=== PATIENT | female | born 1950 | race African-American/Black ===

== ENCOUNTER 2021-06-04 15:03 | Inpatient (IN) | payer OTHER, SELFPAY ==
--- NOTE | 2021-06-04 | ECG_ITS ---
Test Reason : MEDICAL CLEARANCE Blood Pressure : / mmHG Vent. Rate : 077 BPM Atrial Rate : 077 BPM P-R Int : 144 ms QRS Dur : 078 ms QT Int : 386 ms P-R-T Axes : 055 -03 -09 degrees QTc Int : 436 ms Sinus rhythm with Premature atrial complexes Nonspecific T wave abnormality Abnormal ECG No previous ECGs available Referred By: Girish Lafleur Electronically Signed By:MAGUE UGARTE
--- NOTE | ~2021-06-04 | CT_ITS ---
EXAMINATION: CT HEAD WITHOUT CONTRAST CLINICAL INFORMATION: Possible delusions. COMPARISON: No relevant prior imaging. TECHNIQUE: Contiguous axial imaging was performed from the skull base to vertex without intravenous administration of contrast. This CT examination was performed using dose optimization techniques as appropriate, variously including the following: *Automated exposure control *Adjustment of mA and/or kV according to patient size (this includes techniques or standardized protocols for targeted exams where dose is matched to indication/reason for exam; i.e. extremities or head) *Use of iterative reconstruction technique DLP: 801 mGy-cm FINDINGS: There is no acute intracranial hemorrhage or abnormal extra-axial collection. No intracranial mass effect or midline shift. Lateral and third ventricles are normal. No hydrocephalus. Garces-white matter differentiation is grossly preserved and there is no evidence of acute territorial infarct. The calvarium and skull base are intact. Mastoid air cells and middle ear cavities are well aerated. No active paranasal sinus disease. CT/CT head/brain wo con IMPRESSION: Normal CT scan of the head.
[2021-06-04 15:16] VITALS: BP 122/68; PULSE 72
[2021-06-04 15:27] VITALS: BP 104/67; PULSE 78; RESP 18; TEMP 36.9; O2SAT 100; BMI 36.3
--- NOTE | 2021-06-04 15:35 | ED.PSYCH ---
HPI - Psych General Chief Complaint: Psychiatric Symptoms Stated Complaint: HI, CALM AND COOPERATIVE Time Seen by Provider: 06/04/21 15:08 Source: patient Mode of arrival: EMS Limitations: no limitations History of Present Illness HPI Narrative: section 12 for HI towards neighbors complaint: other (possible delusions about her neighbors HI towards her neighbors wrote a note about killing them with a gun) Onset (ago): month(s) (6) Duration: constant History of same: No Relieving factors: none Exacerbating factors: other (issues with her neighbors - they smoke crack cocaine ) Context: significant life stressor Associated psychiatric symptoms: delusions Associated symptoms: denies other symptoms Treatments prior to arrival: placed on mental health hold Related Data Allergies Allergy/AdvReac Type Severity Reaction Status Date / Time No Known Allergies Allergy Verified 06/04/21 15:24 Review of Systems Review of Systems: Constitutional : No Fever, No Chills ENT/Mouth : No Ear Pain, No Nasal Congestion, No sore throat Eyes: No Eye Pain, No Swelling, No Redness Cardiovascular : No Chest Pain, No SOB Respiratory : No Cough, No Sputum, No Dyspnea Gastrointestinal : No Nausea, No Vomiting, No Diarrhea, No Hematochezia, No Melena Genitourinary : No Dysuria, No Urinary Frequency, No Hematuria Musculoskeletal : No Myalgias Skin : No Skin Lesions, No rash Neuro : No Weakness, No Numbness, No Paresthesias, No Dizziness, No Headache Psych : no Anxiety, no Depression, no SI pos HI Heme/Lymph: No Lymphadenopathy Endocrine : No Polyuria, No Polydipsia All other systems reviewed and are negative [facility] Past Medical History Attestation statement: The following information was validated with the patient. Medical History HTN (hypertension) Social History Social History (Updated 06/04/21 @ 15:48 by Josefina Hernandez DO) Patient Tobacco Use Status: Never used Tobacco Use of substances other than those prescribed or required for medical reasons: No Advance Directives: No Advance Directives Information Provided: No Physical Exam Vital Signs: Vital Signs: Last Vital Signs Temp 98.5 F 06/04/21 15:27 Pulse 78 06/04/21 15:27 Resp 18 06/04/21 15:27 BP 104/67 06/04/21 15:27 Pulse Ox 100 06/04/21 15:27 BMI result Body Mass Index 36.3 Appearance: Alert. Oriented X3. No acute distress. Calm and cooperative, story very consistent Eyes: Pupils equal, round and reactive to light. ENT: Pharynx normal. Neck: Normal inspection. Neck supple. CVS: Normal heart rate and rhythm. Pulses normal. Respiratory: No respiratory distress. Breath sounds normal. Abdomen: Soft and non-tender. Skin: Skin warm and dry. Normal skin color. Normal skin turgor. Extremities: No lower extremity edema. No calf ttp Neuro: Oriented X 3. No motor deficit. No sensory deficit. Cn 2-12 intact Course Course Course Narrative: signed out to Dr. Lafleur pending full workup MDM - Psych MDM Narrative Medical decision making narrative: 71 yo female with hx of HTN here with 6 months of issues with neighbors she states they are smoking crack cocaine and coming into her house at night and eating her food. At this time she denies prior hx of mental illness. Will need labs, UA, CT head for mass. Once medically cleared will need N consult. Lab Data Result diagrams: 06/04/21 15:58 06/04/21 15:58 Labs: Lab Results 06/04/21 06/04/21 06/04/21 Range/Units 15:45 15:45 15:58 WBC 6.7 (4.8-10.8) X10*3/uL RBC 4.56 (4.20-5.50) X10*6/uL Hgb 13.0 (12.0-16.0) g/dl Hct 42.1 (37.0-47.0) % MCV 92.3 (80.0-98.0) fL MCH 28.5 (27.0-33.0) pg MCHC 30.9 L (31.0-35.0) g/dl RDW 15.0 (11.0-16.0) % Plt Count 221 (160-400) X10*3/uL MPV 9.8 (9.4-12.3) fL Immature Gran % (Auto) 0.3 (0.0-0.4) % Neut % (Auto) 58.0 (45-73) % Lymph % (Auto) 32.7 (20-40) % [place] % (Auto) 7.0 (2-11) % Eos % (Auto) 1.9 (0-4) % Baso % (Auto) 0.1 (0-2) % Lymph # (Auto) 2.2 (1.2-4.9) X10*3/uL [place] # (Auto) 0.5 (0.1-1.2) X10*3/uL Eos # (Auto) 0.1 (0.0-0.4) X10*3/uL Baso # (Auto) 0.0 (0.0-0.2) X10*3/uL Abs Immat Gran (auto) 0.02 (0.00-0.03) X10*3/uL Absolute Neuts (auto) 3.9 (2.0-8.3) x10*3/uL Absolute Nucleated RBC 0.000 (0.0-0.012) X10*3/uL Nucleated RBC % (auto) 0.0 (0.0-0.2) /100WBC Sodium (135-145) mmol/L Potassium (3.3-5.1) mmol/L Chloride (96-108) mmol/L Carbon Dioxide (22-29) mmol/L Anion Gap (12-20) BUN (9-16) mg/dL Creatinine (0.5-1.4) mg/dL Estim Creat Clear Calc Estimated GFR Random Glucose (60-115) mg/dL Calcium (8.4-10.2) mg/dL Magnesium (1.6-2.6) mg/dL Total Bilirubin (0.0-1.0) mg/dL Direct Bilirubin (0.0-0.5) mg/dL AST (5-31) U/L ALT (0-31) U/L Alkaline Phosphatase (39-117) U/L Total Protein (6.5-8.0) g/dL Albumin (3.5-5.0) g/dL Urine Color YELLOW Urine Appearance HAZY Urine pH 6.0 (5.0-8.0) Ur Specific [place] 1.010 (1.005-1.025) Urine Protein NEG (NEG-TRACE) MG/DL Urine Glucose (UA) NEG (NEG) MG/DL Urine Ketones NEG (NEG) MG/DL Urine Blood NEG (NEG) Urine Nitrite NEG (NEG) Ur Leukocyte Esterase 1+ H (NEG) Urine RBC 0-2 (0) /HPF Urine WBC 1-4 (0-4) /HPF Ur Squamous Epith Cells 1+ /LPF Amorphous Sediment TRACE /LPF Urine Bacteria 2+ /LPF Hyaline Casts 5-9 /LPF Urine Mucus TRACE /LPF Urine Opiates Screen Not Detected (Not Detect) Urine Fentanyl Screen Not Detected (Not Detect) Ur Barbiturates Screen Not Detected (Not Detect) Ur Phencyclidine Scrn Not Detected (Not Detect) Ur Amphetamines Screen Not Detected (Not Detect) U Benzodiazepines Scrn Not Detected (Not Detect) Urine Cocaine Screen Not Detected (Not Detect) U Marijuana (THC) Screen Not Detected (Not Detect) COVID-19 (JUAN) (Negative) COVID-19 Clin Com 06/04/21 06/04/21 Range/Units 15:58 15:58 WBC (4.8-10.8) X10*3/uL RBC (4.20-5.50) X10*6/uL Hgb (12.0-16.0) g/dl Hct (37.0-47.0) % MCV (80.0-98.0) fL MCH (27.0-33.0) pg MCHC (31.0-35.0) g/dl RDW (11.0-16.0) % Plt Count (160-400) X10*3/uL MPV (9.4-12.3) fL Immature Gran % (Auto) (0.0-0.4) % Neut % (Auto) (45-73) % Lymph % (Auto) (20-40) % [place] % (Auto) (2-11) % Eos % (Auto) (0-4) % Baso % (Auto) (0-2) % Lymph # (Auto) (1.2-4.9) X10*3/uL [place] # (Auto) (0.1-1.2) X10*3/uL Eos # (Auto) (0.0-0.4) X10*3/uL Baso # (Auto) (0.0-0.2) X10*3/uL Abs Immat Gran (auto) (0.00-0.03) X10*3/uL Absolute Neuts (auto) (2.0-8.3) x10*3/uL Absolute Nucleated RBC (0.0-0.012) X10*3/uL Nucleated RBC % (auto) (0.0-0.2) /100WBC Sodium 142 (135-145) mmol/L Potassium 4.5 (3.3-5.1) mmol/L Chloride 104 (96-108) mmol/L Carbon Dioxide 30 H (22-29) mmol/L Anion Gap 13 (12-20) BUN 12 (9-16) mg/dL Creatinine 0.91 (0.5-1.4) mg/dL Estim Creat Clear Calc 70.3 Estimated GFR > 60 Random Glucose 124 H (60-115) mg/dL Calcium 9.5 (8.4-10.2) mg/dL Magnesium 2.1 (1.6-2.6) mg/dL Total Bilirubin 0.3 (0.0-1.0) mg/dL Direct Bilirubin < 0.2 (0.0-0.5) mg/dL AST 54 H (5-31) U/L ALT 26 (0-31) U/L Alkaline Phosphatase 109 (39-117) U/L Total Protein 7.3 (6.5-8.0) g/dL Albumin 4.0 (3.5-5.0) g/dL Urine Color Urine Appearance Urine pH (5.0-8.0) Ur Specific [place] (1.005-1.025) Urine Protein (NEG-TRACE) MG/DL Urine Glucose (UA) (NEG) MG/DL Urine Ketones (NEG) MG/DL Urine Blood (NEG) Urine Nitrite (NEG) Ur Leukocyte Esterase (NEG) Urine RBC (0) /HPF Urine WBC (0-4) /HPF Ur Squamous Epith Cells /LPF Amorphous Sediment /LPF Urine Bacteria /LPF Hyaline Casts /LPF Urine Mucus /LPF Urine Opiates Screen (Not Detect) Urine Fentanyl Screen (Not Detect) Ur Barbiturates Screen (Not Detect) Ur Phencyclidine Scrn (Not Detect) Ur Amphetamines Screen (Not Detect) U Benzodiazepines Scrn (Not Detect) Urine Cocaine Screen (Not Detect) U Marijuana (THC) Screen (Not Detect) COVID-19 (JUAN) Negative (Negative) COVID-19 Clin Com See Note Discharge Plan Discharge Clinical Impression: Delusion Patient Disposition: Still a Patient
[2021-06-04 15:54] LABS: Appearance Urine HAZY; Color Urine YELLOW; Glucose Urine UA NEG (NEG); Leukocyte Esterase Urine 1+ (NEG); Nitrite Urine NEG (NEG); UACC Culture Trigger YES; Urine Blood NEG (NEG); Urine Ketones NEG (NEG); Urine Protein NEG (NEG-TRACE)
[2021-06-04 16:03] LABS: MANUAL DIFF FLAG NO
[2021-06-04 16:08] LABS: Basophils Percent Auto 0.1 % (0-2); Eosinophils Absolute Auto 0.1 X10*3/uL (0.0-0.4); Eosinophils Percent Auto 1.9 % (0-4); Hematocrit 42.1 % (37.0-47.0); Imm Gran Abs Auto 0.02 X10*3/uL (0.00-0.03); Imm Gran Pct Auto 0.3 % (0.0-0.4); Lymphocytes Absolute Auto 2.2 X10*3/uL (1.2-4.9); Lymphocytes Percent Auto 32.7 % (20-40); Mean Corpuscular HGB Conc 30.9 g/dl (31.0-35.0); Mean Corpuscular Hemoglobin 28.5 pg (27.0-33.0); Mean Corpuscular Volume 92.3 fL (80.0-98.0); Mean Platelet Volume 9.8 fL (9.4-12.3); Monocytes Absolute Auto 0.5 X10*3/uL (0.1-1.2); Neutrophils Absolute Auto 3.9 x10*3/uL (2.0-8.3); Platelet Count 221 X10*3/uL (160-400); Red Blood Count 4.56 X10*6/uL (4.20-5.50); White Blood Count 6.7 X10*3/uL (4.8-10.8)
[2021-06-04 16:08] LABS: Amorphous Sediment Urine TRACE /LPF; Bacteria Urine 2+ /LPF; Mucus Urine TRACE /LPF; RBC Urine 0-2 /HPF (0); Squamous Epithelial Cell Urine 1+ /LPF
[2021-06-04 16:10] LABS: Amphetamine Screen Urine Not Detected (Not Detect); Barbiturates, Urine Not Detected (Not Detect); Benzodiazepines Screen Urine Not Detected (Not Detect); Cannabinoid Screen Urine Not Detected (Not Detect); Cocaine Screen Urine Not Detected (Not Detect); Fentanyl, urine Not Detected (Not Detect); Opiate Screen Urine Not Detected (Not Detect); Phencyclidine Screen Urine Not Detected (Not Detect)
[2021-06-04 16:24] LABS: COVID-19 Test Negative (Negative)
[2021-06-04 16:25] LABS: Alanine Aminotransferase 26 U/L (0-31); Alkaline Phosphatase 109 U/L (39-117); Anion Gap 13 (12-20); Aspartate Amino Transferase 54 U/L (5-31); Bilirubin Direct < 0.2 mg/dL (0.0-0.5); Bilirubin Total 0.3 mg/dL (0.0-1.0); Blood Urea Nitrogen 12 mg/dL (9-16); Calcium 9.5 mg/dL (8.4-10.2); Carbon Dioxide 30 mmol/L (22-29); Chloride 104 mmol/L (96-108); Creatinine Clr Calc Pharmacy 70.3; Estimated Glomerular Filt Rate > 60; Glucose Random 124 mg/dL (60-115); Magnesium 2.1 mg/dL (1.6-2.6); Potassium 4.5 mmol/L (3.3-5.1); Sodium 142 mmol/L (135-145); Total Protein 7.3 g/dL (6.5-8.0)
[2021-06-04 16:46] LABS: TSH reflex Free T4 0.73 uIU/mL (0.32-4.0)
--- NOTE | 2021-06-04 21:30 | PC.NURSE ---
Report given to Barb ([id number])
[2021-06-04 22:10] VITALS: BP 124/60; PULSE 68; RESP 18; TEMP 36.1; O2SAT 98
--- NOTE | 2021-06-05 00:52 | PC.ADMIT ---
PT is a 71 year old Black, Stateless speaking female, referred to [facility] (To whom she is known) after making several phone calls to 911 related to paranoid delusions. At baseline PT has some paranoia and delusions. PT has never had an inpatient admission. PT arrived to unit in a WC with staff and security on a 12b at 2205 in hospital attire. PT calm and cooperative during admission interview. PT A+Ox4, but does not understand why she is here. PT has been leaving threatening notes on neighbors door, ,whom she believes is doing drugs and breaking into her apartment, PT was claiming she had a gun and would use it. Of note daughter and PT said PT does not have a gun. PT has no significant psychiatric history. PT refused to sign the CV in the ED with Care Team. PT states that she has HTN. VSS at 2210 T 97, P68, O298%/RA, BP 124/60. PT could possibly have cognitive decline or neurocognitive D/O according to prior evaluation. PT Covid negative, PT does not smoke, PT declined flu vaccine, urine tox screen was negative. PT oriented to unit, belongings gone through and given to PT what was allowed. MD Mckee notified of PT pending arrival and transfer orders were put in prior to PT being admitted to unit.
[2021-06-05] MEDS: Acetaminophen 325 MG TABLET 650 MG PO (05:04)
[2021-06-05 07:50] VITALS: BP 146/64; PULSE 58; RESP 14; TEMP 36.6; O2SAT 98
[2021-06-05 08:28] LABS: Alanine Aminotransferase 23 U/L (0-31); Albumin Level 3.7 g/dL (3.5-5.0); Alkaline Phosphatase 89 U/L (39-117); Anion Gap 11 (12-20); Aspartate Amino Transferase 48 U/L (5-31); Bilirubin Total 0.5 mg/dL (0.0-1.0); Blood Urea Nitrogen 11 mg/dL (9-16); Calcium 9.5 mg/dL (8.4-10.2); Carbon Dioxide 28 mmol/L (22-29); Chloride 106 mmol/L (96-108); Estimated Glomerular Filt Rate > 60; Glucose Fasting 89 mg/dL (60-99); Potassium 4.1 mmol/L (3.3-5.1); Sodium 141 mmol/L (135-145); Total Protein 6.6 g/dL (6.5-8.0)
[2021-06-05] MEDS: Cholestyramine (With Sugar) 4 GM POWD.PACK 1 GM PO (13:00)
[2021-06-05 15:45] VITALS: BP 136/81; PULSE 60; RESP 14; O2SAT 97
--- NOTE | 2021-06-05 15:59 | P.HPPS_ITS ---
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 According to the chart, the patient had been calling 911 several times stating that her neighbor has broken into her house and she has eating her food. She became angry and she escalated and she has th reatened notes to her neighbor stating that he will kill her if she breaks into her home. According to her daughter, these issue has been addressed court a couple of times and she has been paranoid against the neighbors for the last 2 years. The patient has accused the neighbors of abusing drugs and getting into her home several times. On interview, the patient denies auditory hallucinations, suicidal or homicidal thoughts and she stated that she does not own and can to hurt her neighbors. Coni holt was pleasant and cooperative in the interview and she wants to be discharged as soon as possible. She stated that she does not had past history of mental illness and she has never been violent. Past Psychiatric History: No prior psychiatric history Medical Evaluation Reviewed: Hospitalist Miroslava Pending [facility] Medical History HTN (hypertension) Family History: denies Social History: the patient is the youngest of total siblings, she was born and raised in the [facility], she attended regular school and graduated eventually she has work in housekeeping and other jobs. She moved to [place] when she was very young, she had 2 children from a previous relation and she was raised her family by herself. Substance History: Denies Trauma History: refused to elaborate Diagnostics Vital Signs (24Hr): Vital Signs - 24 hr 06/04/21 22:10 06/05/21 07:50 Temperature 97 F 97.8 F Pulse Rate 68 58 Respiratory Rate 18 14 Blood Pressure 124/60 146/64 H Pulse Oximetry 98 98 BMI result Body Mass Index 36.3 Labs Results: 06/04/21 15:58 06/05/21 07:44 Labs: Laboratory Results - last 48 hr 06/04/21 06/04/21 06/04/21 15:45 15:45 15:58 WBC 6.7 RBC 4.56 Hgb 13.0 Hct 42.1 MCV 92.3 MCH 28.5 MCHC 30.9 L RDW 15.0 Plt Count 221 MPV 9.8 Immature Gran % (Auto) 0.3 Neut % (Auto) 58.0 Lymph % (Auto) 32.7 [place] % (Auto) 7.0 Eos % (Auto) 1.9 Baso % (Auto) 0.1 Lymph # (Auto) 2.2 [place] # (Auto) 0.5 Eos # (Auto) 0.1 Baso # (Auto) 0.0 Abs Immat Gran (auto) 0.02 Absolute Neuts (auto) 3.9 Absolute Nucleated RBC 0.000 Nucleated RBC % (auto) 0.0 Sodium Potassium Chloride Carbon Dioxide Anion Gap BUN Creatinine Estim Creat Clear Calc Estimated GFR Random Glucose Fasting Glucose Calcium Magnesium Total Bilirubin Direct Bilirubin AST ALT Alkaline Phosphatase Total Protein Albumin TSH Urine Color YELLOW Urine Appearance HAZY Urine pH 6.0 Ur Specific [place] 1.010 Urine Protein NEG Urine Glucose (UA) NEG Urine Ketones NEG Urine Blood NEG Urine Nitrite NEG Ur Leukocyte Esterase 1+ H Urine RBC 0-2 Urine WBC 1-4 Ur Squamous Epith Cells 1+ Amorphous Sediment TRACE Urine Bacteria 2+ Hyaline Casts 5-9 Urine Mucus TRACE Urine Opiates Screen Not Detected Urine Fentanyl Screen Not Detected Ur Barbiturates Screen Not Detected Ur Phencyclidine Scrn Not Detected Ur Amphetamines Screen Not Detected U Benzodiazepines Scrn Not Detected Urine Cocaine Screen Not Detected U Marijuana (THC) Screen Not Detected COVID-19 (JUAN) COVID-19 Clin Com 06/04/21 06/04/21 06/04/21 15:58 15:58 15:58 WBC RBC Hgb Hct MCV MCH MCHC RDW Plt Count MPV Immature Gran % (Auto) Neut % (Auto) Lymph % (Auto) [place] % (Auto) Eos % (Auto) Baso % (Auto) Lymph # (Auto) [place] # (Auto) Eos # (Auto) Baso # (Auto) Abs Immat Gran (auto) Absolute Neuts (auto) Absolute Nucleated RBC Nucleated RBC % (auto) Sodium 142 Potassium 4.5 Chloride 104 Carbon Dioxide 30 H Anion Gap 13 BUN 12 Creatinine 0.91 Estim Creat Clear Calc 70.3 Estimated GFR > 60 Random Glucose 124 H Fasting Glucose Calcium 9.5 Magnesium 2.1 Total Bilirubin 0.3 Direct Bilirubin < 0.2 AST 54 H ALT 26 Alkaline Phosphatase 109 Total Protein 7.3 Albumin 4.0 TSH 0.73 Urine Color Urine Appearance Urine pH Ur Specific [place] Urine Protein Urine Glucose (UA) Urine Ketones Urine Blood Urine Nitrite Ur Leukocyte Esterase Urine RBC Urine WBC Ur Squamous Epith Cells Amorphous Sediment Urine Bacteria Hyaline Casts Urine Mucus Urine Opiates Screen Urine Fentanyl Screen Ur Barbiturates Screen Ur Phencyclidine Scrn Ur Amphetamines Screen U Benzodiazepines Scrn Urine Cocaine Screen U Marijuana (THC) Screen COVID-19 (JUAN) Negative COVID-19 Clin Com See Note 06/05/21 07:44 WBC RBC Hgb Hct MCV MCH MCHC RDW Plt Count MPV Immature Gran % (Auto) Neut % (Auto) Lymph % (Auto) [place] % (Auto) Eos % (Auto) Baso % (Auto) Lymph # (Auto) [place] # (Auto) Eos # (Auto) Baso # (Auto) Abs Immat Gran (auto) Absolute Neuts (auto) Absolute Nucleated RBC Nucleated RBC % (auto) Sodium 141 Potassium 4.1 Chloride 106 Carbon Dioxide 28 Anion Gap 11 L BUN 11 Creatinine 0.82 Estim Creat Clear Calc 78.0 Estimated GFR > 60 Random Glucose Fasting Glucose 89 Calcium 9.5 Magnesium Total Bilirubin 0.5 Direct Bilirubin AST 48 H ALT 23 Alkaline Phosphatase 89 Total Protein 6.6 Albumin 3.7 TSH Urine Color Urine Appearance Urine pH Ur Specific [place] Urine Protein Urine Glucose (UA) Urine Ketones Urine Blood Urine Nitrite Ur Leukocyte Esterase Urine RBC Urine WBC Ur Squamous Epith Cells Amorphous Sediment Urine Bacteria Hyaline Casts Urine Mucus Urine Opiates Screen Urine Fentanyl Screen Ur Barbiturates Screen Ur Phencyclidine Scrn Ur Amphetamines Screen U Benzodiazepines Scrn Urine Cocaine Screen U Marijuana (THC) Screen COVID-19 (JUAN) COVID-19 Clin Com Imaging Radiology Impressions: ITS Impressions Head CT 06/04/21 16:18 IMPRESSION: Normal CT scan of the head. Meds/Allergies Meds Home Medications Acetaminophen (Acetaminophen 325 Mg Tablet) 650 mg PO Q6H PRN PRN Reason: Headache/Pain Mild Scale (1-3) Last Admin: 06/05/21 05:04 Dose: 650 mg Documented by: Al Hydroxide/Mg Hydroxide (Magnesium Hydrox/Alum Hydrox 30 Ml Oral.Susp) 30 ml PO Q6H PRN PRN Reason: Heartburn/Nausea Cholestyramine Resin (Cholestyramine (With Sugar) 4 Gm Powd.Pack) 1 gm PO BID [facility] Last Admin: 06/05/21 13:00 Dose: 1 gm Documented by: Haloperidol (Haloperidol 1 Mg Tablet) 2 mg PO Q4H PRN PRN Reason: agitation Ketotifen Fumarate (Ketotifen Fumarate 0.025% Oph 5 Ml Drpbtl) 1 drop EYE-BOTH BID [facility] Lisinopril (Lisinopril 10 Mg Tablet) 10 mg PO DAILY NARDA; Protocol Lorazepam (Lorazepam 1 Mg Tablet) 1 mg PO Q4H PRN PRN Reason: agitation Lorazepam (Lorazepam 0.5 Mg Tablet) 0.25 mg PO TID PRN PRN Reason: anxiety Magnesium Hydroxide (Milk Of Magnesia 30 Ml Oral.Susp) 30 ml PO DAILY PRN PRN Reason: Constipation Omeprazole (Omeprazole 20 Mg Capsule.Dr) 20 mg PO DAILY@0630 [facility] Trazodone HCl (Trazodone Hcl 25 Mg Halftab) 25 mg PO BEDTIME PRN PRN Reason: Insomnia Trazodone HCl (Trazodone Hcl 50 Mg Tablet) 50 mg PO BEDTIME [facility] Allergies Allergies Allergy/AdvReac Type Severity Reaction Status Date / Time No Known Allergies Allergy Verified 06/04/21 15:24 Mental Status Exam Mental Status Exam Patient Appearance: Well Grooomed Patient Orientation: Person, Place and Situation Level of Consciousness: Awake Patient Behavior: Cooperative Mood Description: Calm Affect Description: Constricted Ability to Follow Directions: Good Speech Pattern: Clear Hallucinations: None Delusions: Paranoid Ideation Thought Process: Distracted and Evasive Thought Content: positive for Circumstantial Judgement: Fair Assessment & Plan Assessment & Plan (1) Delusion: Status: Acute Code(s): F22 - Delusional disorders Plan elderly female with no prior psychiatric history admitted into the hospital after she threatened her neighbors, apparently she had been paranoid against her neighbors for several months and she has accused the neighbors to get into her apartment and stealing her food, crisis reported that she threatened to kill the neighbor saved a break into her home. Plan 1. Gather collateral information. 2. Start a low dose of Risperdal 0.25 mg p.o. q.h.s. to target psychosis. 3. Continue medical workout. Patient educated on: diagnosis Guardian/Caregiver educated on: diagnosis Informed Consent: further education needed Reason for continued inpatient stay Substantial Risk for: harm to others, inability to function, rapid decompensation and med/psych decompensation
[2021-06-06] MEDS: Acetaminophen 325 MG TABLET 650 MG PO (00:47)
[2021-06-06] MEDS: traZODone HCL 50 MG TABLET PO (00:58)
[2021-06-06 07:00] VITALS: BMI 38.7
[2021-06-06 07:45] VITALS: BP 144/62; PULSE 58; RESP 16; TEMP 36.6; O2SAT 98
[2021-06-06] MEDS: lisinopriL 10 MG TABLET PO (08:30)
[2021-06-06] MEDS: Ketotifen Fumarate 0.025% Oph 5 ML DRPBTL 1 DROP EYE-BOTH ×2 (08:30→20:12)
[2021-06-06] MEDS: Omeprazole 20 MG CAPSULE.DR PO (08:30)
[2021-06-06] MEDS: Cholestyramine (With Sugar) 4 GM POWD.PACK PO ×2 (10:22→20:12)
--- NOTE | 2021-06-06 14:16 | P.PNPSI_ITS ---
Subjective Subjective Date of Service: 06/06/21 Reason For Visit: Delusions Subjective Notes: Section 12B Interim History: Met with pt, LYUDMILA Keys and pt's daughter (on zoom). We discussed findings of MOCA- 11/05 most impairments in executive function (0/5), naming (1/3), language fluency/repetition, attention, recall (0/5). Orientation intact. Pattern of impairment may be due to multiple etiologies- most likely vascular (executive function, paranoia) but keep in mind language significantly impaired to be exclusively vascular, orientation intact to be predominantly AD. Pt reports she did not sleep- somewhat suspicious about people at night here on the unit. She declines taking risperidone, responding her mind is clear and she knows someone is breaking in despite her admitting to not seeing them inside the home. However, she adamantly denied any plan or intent to hurt neighbors. She is worried she will come to her house. Daughter reports she will stay with pt some nights. Pt denies SI. She denies symptoms of depression or anxiety. Pt states she does not want to take too many medications, worries about getting dependent of medications- despite being educated that risperidone does not cause dependence. Pt has been very suspicious about medications given in hospital, wants them brought from home. Otherwise, she has been visible, social with select peers. No behavioral concerns. no signs of aggression towards self or others. Medication Compliance: No Review of Systems Review of Systems Yes all other systems are reviewed and are negative Mental Status Exam Mental Status Exam Narrative: Appearance: casually groomed, good hygiene in NAD Behavior:cooperative psychomotor:no agitation or retardation noted Speech:clear, normal rate/rhythm/volume, spontaneous Thought process:mostly linear, tangential at times but no loose associations nor derailment Thought content:paranoia delusions relating to neighbors breaking into her apartment to steal food, wanting to be home Mood: good Affect: congruent, bright, none labile SI:denies HI:denies VH/AH:none Delusions:paranoid delusions of neighbors breaking into her apartment Insight/judgment:poor x 2. Memory/cog: alert, oriented x4. MOCA completed on 06/06/2021- 11/05 most impairments in executive function (0/5), naming (1/3), language fluency/repetition, attention, recall (0/5). Orientation intact. Diagnostics Vital Signs (24Hr): Vital Signs - 24 hr 06/05/21 15:45 06/06/21 07:45 Temperature 97.8 F Pulse Rate 60 58 Respiratory Rate 14 16 Blood Pressure 136/81 144/62 H Pulse Oximetry 97 98 BMI result Body Mass Index 36.3 Labs Results: 06/04/21 15:58 06/05/21 07:44 Labs: Laboratory Results - last 48 hr 06/04/21 06/04/21 06/04/21 15:45 15:45 15:58 WBC 6.7 RBC 4.56 Hgb 13.0 Hct 42.1 MCV 92.3 MCH 28.5 MCHC 30.9 L RDW 15.0 Plt Count 221 MPV 9.8 Immature Gran % (Auto) 0.3 Neut % (Auto) 58.0 Lymph % (Auto) 32.7 [place] % (Auto) 7.0 Eos % (Auto) 1.9 Baso % (Auto) 0.1 Lymph # (Auto) 2.2 [place] # (Auto) 0.5 Eos # (Auto) 0.1 Baso # (Auto) 0.0 Abs Immat Gran (auto) 0.02 Absolute Neuts (auto) 3.9 Absolute Nucleated RBC 0.000 Nucleated RBC % (auto) 0.0 Sodium Potassium Chloride Carbon Dioxide Anion Gap BUN Creatinine Estim Creat Clear Calc Estimated GFR Random Glucose Fasting Glucose Calcium Magnesium Total Bilirubin Direct Bilirubin AST ALT Alkaline Phosphatase Total Protein Albumin TSH Urine Color YELLOW Urine Appearance HAZY Urine pH 6.0 Ur Specific [place] 1.010 Urine Protein NEG Urine Glucose (UA) NEG Urine Ketones NEG Urine Blood NEG Urine Nitrite NEG Ur Leukocyte Esterase 1+ H Urine RBC 0-2 Urine WBC 1-4 Ur Squamous Epith Cells 1+ Amorphous Sediment TRACE Urine Bacteria 2+ Hyaline Casts 5-9 Urine Mucus TRACE Urine Opiates Screen Not Detected Urine Fentanyl Screen Not Detected Ur Barbiturates Screen Not Detected Ur Phencyclidine Scrn Not Detected Ur Amphetamines Screen Not Detected U Benzodiazepines Scrn Not Detected Urine Cocaine Screen Not Detected U Marijuana (THC) Screen Not Detected COVID-19 (JUAN) COVID-19 Clin Com 06/04/21 06/04/21 06/04/21 15:58 15:58 15:58 WBC RBC Hgb Hct MCV MCH MCHC RDW Plt Count MPV Immature Gran % (Auto) Neut % (Auto) Lymph % (Auto) [place] % (Auto) Eos % (Auto) Baso % (Auto) Lymph # (Auto) [place] # (Auto) Eos # (Auto) Baso # (Auto) Abs Immat Gran (auto) Absolute Neuts (auto) Absolute Nucleated RBC Nucleated RBC % (auto) Sodium 142 Potassium 4.5 Chloride 104 Carbon Dioxide 30 H Anion Gap 13 BUN 12 Creatinine 0.91 Estim Creat Clear Calc 70.3 Estimated GFR > 60 Random Glucose 124 H Fasting Glucose Calcium 9.5 Magnesium 2.1 Total Bilirubin 0.3 Direct Bilirubin < 0.2 AST 54 H ALT 26 Alkaline Phosphatase 109 Total Protein 7.3 Albumin 4.0 TSH 0.73 Urine Color Urine Appearance Urine pH Ur Specific [place] Urine Protein Urine Glucose (UA) Urine Ketones Urine Blood Urine Nitrite Ur Leukocyte Esterase Urine RBC Urine WBC Ur Squamous Epith Cells Amorphous Sediment Urine Bacteria Hyaline Casts Urine Mucus Urine Opiates Screen Urine Fentanyl Screen Ur Barbiturates Screen Ur Phencyclidine Scrn Ur Amphetamines Screen U Benzodiazepines Scrn Urine Cocaine Screen U Marijuana (THC) Screen COVID-19 (JUAN) Negative COVID-19 Clin Com See Note 06/05/21 07:44 WBC RBC Hgb Hct MCV MCH MCHC RDW Plt Count MPV Immature Gran % (Auto) Neut % (Auto) Lymph % (Auto) [place] % (Auto) Eos % (Auto) Baso % (Auto) Lymph # (Auto) [place] # (Auto) Eos # (Auto) Baso # (Auto) Abs Immat Gran (auto) Absolute Neuts (auto) Absolute Nucleated RBC Nucleated RBC % (auto) Sodium 141 Potassium 4.1 Chloride 106 Carbon Dioxide 28 Anion Gap 11 L BUN 11 Creatinine 0.82 Estim Creat Clear Calc 78.0 Estimated GFR > 60 Random Glucose Fasting Glucose 89 Calcium 9.5 Magnesium Total Bilirubin 0.5 Direct Bilirubin AST 48 H ALT 23 Alkaline Phosphatase 89 Total Protein 6.6 Albumin 3.7 TSH Urine Color Urine Appearance Urine pH Ur Specific [place] Urine Protein Urine Glucose (UA) Urine Ketones Urine Blood Urine Nitrite Ur Leukocyte Esterase Urine RBC Urine WBC Ur Squamous Epith Cells Amorphous Sediment Urine Bacteria Hyaline Casts Urine Mucus Urine Opiates Screen Urine Fentanyl Screen Ur Barbiturates Screen Ur Phencyclidine Scrn Ur Amphetamines Screen U Benzodiazepines Scrn Urine Cocaine Screen U Marijuana (THC) Screen COVID-19 (JUAN) COVID-19 Clin Com Imaging Radiology Impressions: ITS Impressions Head CT 06/04/21 16:18 IMPRESSION: Normal CT scan of the head. Medications Medications Current Medications Acetaminophen (Acetaminophen 325 Mg Tablet) 650 mg PO Q6H PRN PRN Reason: Headache/Pain Mild Scale (1-3) Last Admin: 06/06/21 00:47 Dose: 650 mg Documented by: Al Hydroxide/Mg Hydroxide (Magnesium Hydrox/Alum Hydrox 30 Ml Oral.Susp) 30 ml PO Q6H PRN PRN Reason: Heartburn/Nausea Cholestyramine Resin (Cholestyramine (With Sugar) 4 Gm Powd.Pack) 4 gm PO BID [facility] Last Admin: 06/06/21 10:22 Dose: 4 gm Documented by: Haloperidol (Haloperidol 1 Mg Tablet) 2 mg PO Q4H PRN PRN Reason: agitation Ketotifen Fumarate (Ketotifen Fumarate 0.025% Oph 5 Ml Drpbtl) 1 drop EYE-BOTH BID [facility] Last Admin: 06/06/21 08:30 Dose: 1 drop Documented by: Lisinopril (Lisinopril 10 Mg Tablet) 10 mg PO DAILY [facility]; Protocol Last Admin: 06/06/21 08:30 Dose: 10 mg Documented by: Lorazepam (Lorazepam 1 Mg Tablet) 1 mg PO Q4H PRN PRN Reason: agitation Lorazepam (Lorazepam 0.5 Mg Tablet) 0.25 mg PO TID PRN PRN Reason: anxiety Magnesium Hydroxide (Milk Of Magnesia 30 Ml Oral.Susp) 30 ml PO DAILY PRN PRN Reason: Constipation Omeprazole (Omeprazole 20 Mg Capsule.Dr) 20 mg PO DAILY@0630 [facility] Last Admin: 06/06/21 08:30 Dose: 20 mg Documented by: Risperidone (Risperidone 0.25 Mg Tablet) 0.25 mg PO BEDTIME [facility] Last Admin: 06/05/21 21:01 Dose: Not Given Documented by: Trazodone HCl (Trazodone Hcl 25 Mg Halftab) 25 mg PO BEDTIME PRN PRN Reason: Insomnia Trazodone HCl (Trazodone Hcl 50 Mg Tablet) 50 mg PO BEDTIME [facility] Last Admin: 06/06/21 00:58 Dose: 50 mg Documented by: Allergies Allergies Allergy/AdvReac Type Severity Reaction Status Date / Time No Known Allergies Allergy Verified 06/04/21 15:24 Assessment & Plan Assessment & Plan (1) Major neurocognitive disorder due to another medical condition with behavioral disturbance: Status: Acute Code(s): F02.81 - Dementia in other diseases classified elsewhere with behavioral disturbance Plan elderly female with no prior psychiatric history admitted into the hospital after she threatened her neighbors, apparently she had been paranoid against her neighbors for several months and she has accused the neighbors to get into her apartment and stealing her food, crisis reported that she threatened to kill the neighbor saved a break into her home. Pt on sect 12b, 15 mins checks for safety. On 06/06- discussed with pt and family findings of MOCA- 11/05 most impairments in executive function (0/5), naming (1/3), language fluency/repetition, attention, recall (0/5). Orientation intact. Pattern of impairment may be due to multiple etiologies- most likely vascular (executive function, paranoia) but keep in mind language significantly impaired to be exclusively vascular, orientation intact to be predominantly AD. Either way do suspect psychiatric symptoms related to primarily dementing process. Plan 1. Gather collateral information. 2. Start a low dose of Risperdal 0.25 mg p.o. q.h.s. to target psychosis. 3. Continue medical workout. I spent minutes with the patient and/or on the patient floor today, greater than?50% of which was spent counseling/coordinating care. Reason for contiued inpatient stay Substantial Risk for: inability to function
[2021-06-06 21:21] VITALS: BP 112/62; PULSE 71; RESP 16; TEMP 36.7; O2SAT 99
[2021-06-07 08:00] VITALS: BP 141/81; PULSE 67; RESP 14; TEMP 36.4; O2SAT 97
[2021-06-07] MEDS: lisinopriL 10 MG TABLET PO (08:45)
[2021-06-07] MEDS: Cholestyramine (With Sugar) 4 GM POWD.PACK PO (08:45)
[2021-06-07] MEDS: Ketotifen Fumarate 0.025% Oph 5 ML DRPBTL 1 DROP EYE-BOTH (08:51)
--- NOTE | 2021-06-07 10:35 | PM.PSYDC ---
DS: Providers Provider Date of Service: 06/07/21 Date of admission: 06/04/21 21:33 Date of discharge: 06/07/21 Primary care physician: Jaimie Laureano MD DS: Diagnosis Discharge Diagnosis (1) Major neurocognitive disorder due to another medical condition with behavioral disturbance: Status: Acute DS: Medications Discharge Medications Home Medications: Home Medications Medication Instructions Recorded Confirmed alprazolam 0.25 mg tablet 1 tab PO DAILY PRN 06/05/21 cholestyramine-aspartame 4 gram 1 packet PO BID 06/05/21 06/05/21 oral powder for susp in a packet (Cholestyramine Light) ketotifen fumarate 0.025 % (0.035 1 drp OPHTHALMIC (EYE) BID 06/05/21 06/05/21 %) eye drops lisinopril 10 mg tablet 1 tab PO DAILY 06/05/21 06/05/21 omeprazole 20 mg capsule,delayed 1 cap PO DAILY 06/05/21 06/05/21 release trazodone 50 mg tablet 1 tab PO BEDTIME 06/05/21 06/05/21 zolpidem 10 mg tablet 1 tab PO BEDTIME PRN 06/05/21 06/05/21 Mental Status Exam Mental Status Exam Patient Appearance: Well Grooomed Patient Orientation: Person and Situation Level of Consciousness: Awake Patient Behavior: Cooperative Mood Description: Constricted Affect Description: Calm Patient Cognition Impaired: Yes Ability to Follow Directions: Good Speech Pattern: Clear Memory Description: Intact Hallucinations: None Delusions: Paranoid Ideation Thought Process: Distracted and Evasive Thought Content: positive for Poverty of Content Judgement: Fair Data Data Completed and Pending Completed studies during hospitalization [Text1]: 06/04/21 06/04/21 06/04/21 15:45 15:45 15:58 WBC 6.7 RBC 4.56 Hgb 13.0 Hct 42.1 MCV 92.3 MCH 28.5 MCHC 30.9 L RDW 15.0 Plt Count 221 MPV 9.8 Immature Gran % (Auto) 0.3 Neut % (Auto) 58.0 Lymph % (Auto) 32.7 [place] % (Auto) 7.0 Eos % (Auto) 1.9 Baso % (Auto) 0.1 Lymph # (Auto) 2.2 [place] # (Auto) 0.5 Eos # (Auto) 0.1 Baso # (Auto) 0.0 Abs Immat Gran (auto) 0.02 Absolute Neuts (auto) 3.9 Absolute Nucleated RBC 0.000 Nucleated RBC % (auto) 0.0 Sodium Potassium Chloride Carbon Dioxide Anion Gap BUN Creatinine Estim Creat Clear Calc Estimated GFR Random Glucose Fasting Glucose Calcium Magnesium Total Bilirubin Direct Bilirubin AST ALT Alkaline Phosphatase Total Protein Albumin TSH Urine Color YELLOW Urine Appearance HAZY Urine pH 6.0 Ur Specific [place] 1.010 Urine Protein NEG Urine Glucose (UA) NEG Urine Ketones NEG Urine Blood NEG Urine Nitrite NEG Ur Leukocyte Esterase 1+ H Urine RBC 0-2 Urine WBC 1-4 Ur Squamous Epith Cells 1+ Amorphous Sediment TRACE Urine Bacteria 2+ Hyaline Casts 5-9 Urine Mucus TRACE Urine Opiates Screen Not Detected Urine Fentanyl Screen Not Detected Ur Barbiturates Screen Not Detected Ur Phencyclidine Scrn Not Detected Ur Amphetamines Screen Not Detected U Benzodiazepines Scrn Not Detected Urine Cocaine Screen Not Detected U Marijuana (THC) Screen Not Detected COVID-19 (JUAN) COVID-19 Clin Com 06/04/21 06/04/21 06/04/21 15:58 15:58 15:58 WBC RBC Hgb Hct MCV MCH MCHC RDW Plt Count MPV Immature Gran % (Auto) Neut % (Auto) Lymph % (Auto) [place] % (Auto) Eos % (Auto) Baso % (Auto) Lymph # (Auto) [place] # (Auto) Eos # (Auto) Baso # (Auto) Abs Immat Gran (auto) Absolute Neuts (auto) Absolute Nucleated RBC Nucleated RBC % (auto) Sodium 142 Potassium 4.5 Chloride 104 Carbon Dioxide 30 H Anion Gap 13 BUN 12 Creatinine 0.91 Estim Creat Clear Calc 70.3 Estimated GFR > 60 Random Glucose 124 H Fasting Glucose Calcium 9.5 Magnesium 2.1 Total Bilirubin 0.3 Direct Bilirubin < 0.2 AST 54 H ALT 26 Alkaline Phosphatase 109 Total Protein 7.3 Albumin 4.0 TSH 0.73 Urine Color Urine Appearance Urine pH Ur Specific [place] Urine Protein Urine Glucose (UA) Urine Ketones Urine Blood Urine Nitrite Ur Leukocyte Esterase Urine RBC Urine WBC Ur Squamous Epith Cells Amorphous Sediment Urine Bacteria Hyaline Casts Urine Mucus Urine Opiates Screen Urine Fentanyl Screen Ur Barbiturates Screen Ur Phencyclidine Scrn Ur Amphetamines Screen U Benzodiazepines Scrn Urine Cocaine Screen U Marijuana (THC) Screen COVID-19 (JUAN) Negative COVID-19 Clin Com See Note 06/05/21 07:44 WBC RBC Hgb Hct MCV MCH MCHC RDW Plt Count MPV Immature Gran % (Auto) Neut % (Auto) Lymph % (Auto) [place] % (Auto) Eos % (Auto) Baso % (Auto) Lymph # (Auto) [place] # (Auto) Eos # (Auto) Baso # (Auto) Abs Immat Gran (auto) Absolute Neuts (auto) Absolute Nucleated RBC Nucleated RBC % (auto) Sodium 141 Potassium 4.1 Chloride 106 Carbon Dioxide 28 Anion Gap 11 L BUN 11 Creatinine 0.82 Estim Creat Clear Calc 78.0 Estimated GFR > 60 Random Glucose Fasting Glucose 89 Calcium 9.5 Magnesium Total Bilirubin 0.5 Direct Bilirubin AST 48 H ALT 23 Alkaline Phosphatase 89 Total Protein 6.6 Albumin 3.7 TSH Urine Color Urine Appearance Urine pH Ur Specific [place] Urine Protein Urine Glucose (UA) Urine Ketones Urine Blood Urine Nitrite Ur Leukocyte Esterase Urine RBC Urine WBC Ur Squamous Epith Cells Amorphous Sediment Urine Bacteria Hyaline Casts Urine Mucus Urine Opiates Screen Urine Fentanyl Screen Ur Barbiturates Screen Ur Phencyclidine Scrn Ur Amphetamines Screen U Benzodiazepines Scrn Urine Cocaine Screen U Marijuana (THC) Screen COVID-19 (JUAN) COVID-19 Clin Com 06/04/21 Unknown Urine clean catch - Urine headley top Urine Culture - Final Imaging Diagnostic Imaging Impressions Head CT 06/04/21 16:18 IMPRESSION: Normal CT scan of the head. DS: Summary Hospital Course Hospital Course: The patient was transferred from the emergency room of another hospital 42 save thinking and paranoia against her neighbors. Please see the HPI of the admission note for further details. The patient was started on a very low dose of Risperdal to target her psychosis. Even though the patient was very paranoid and convinced that her neighbors are breaking into her apartment, she adamantly denies suicidal or me side of thoughts or any safety concerns. A family meeting was arranged and her daughter explained that the patient had even legal problems against her neighbors and so far nothing that the patient claimed has been proven. We decided to assess her cognitive ability and she has court on the [place] 80/30. Even though that she scored very low and she has severe dementia, the patient was alert, oriented and she was able to do her own ADL less. We discussed with the patient and the family about the safe discharge plan. We provided information for other ancillary services and since there were no safety concerns discharge planning was discussed Time spent discussing smoking cessation with patient: 3 to 10 minutes Status at Discharge Cognitive/behavioral status at discharge: impaired at baseline Functional status at discharge: independent ambulation Overall status at discharge: patient is back to baseline Time Spent with Patient Time attestation: Total time spent providing and/or coordinating discharge services: Time spent: Less than 30 minutes Discharge Plan Discharge Patient Disposition: Home, Self-Care Discharge Diagnosis: delusive disorder Referrals: Rob RIVERS [Other] - 06/08/21 (RN and OT services to begin 06/08/21.) [facility] [Other] - 07/05/21 11:00 am (Your psychiatry appointment is scheduled for 07/05/21 at 11:00am with Brandin West by phone. The provider will call you at 11:00am. ) Jaimie Laureano MD [Primary Care Provider] - 1 Week Discharge Medications: New risperidone 0.25 mg Tablet 0.25 mg PO BEDTIME 30 Days Qty: 30 0RF Continued trazodone 50 mg tablet 1 tab PO BEDTIME 0RF ketotifen fumarate 0.025 % (0.035 %) drops 1 drp ophthalmic (eye) BID 0RF alprazolam 0.25 mg tablet 1 tab PO DAILY PRN (Reason: Anxiety) 0RF lisinopril 10 mg tablet 1 tab PO DAILY 0RF omeprazole 20 mg capsule,delayed release(DR/EC) 1 cap PO DAILY 0RF zolpidem 10 mg tablet 1 tab PO BEDTIME PRN (Reason: insomnia) 0RF cholestyramine-aspartame [Cholestyramine Light] 4 gram powder in packet 1 packet PO BID 0RF Discharge Orders: Discharge Order (Routine); Ordered 06/07/21 Ordered By: Jayme Vasquez Diet: advance to usual diet Activity on Discharge: As tolerated Stand Alone Forms: Patient Portal Discharge page Care Plan Goals: care plan goals achieved Health Concerns: continue treatment with outpatient providers Plan of Treatment: continue treatment as an outpatient Assessment: the patient is an elderly female with a recent onset of paranoia and fixed delusions against her neighbors with cognitive impairment. She was brought into the facility since she verbalized suicidal ideation but there were no safety concerns. The patient is discharged to her family with follow-up appointments
--- NOTE | 2021-06-07 13:38 | PC.NURSE ---
Patient was aware and ready for discharge . Paper work review with patient. Follow up appointment and next dose medications explained to patient . Patient verbalized understanding. Patient was pleasant and cooperative for the discharge process. Patient was accompanied with belongings to the front of the building per hospital policy.
== END 2021-06-07 13:10 | disposition home or self-care (01) | DRG 884 ==
LOC: HO.ED 20:16 → HO.PGERI 21:44
PROVIDERS: Admitting Provider Psychiatry & Neurology Psychiatry; Emergency Provider Emergency Medicine; PCP Internal Medicine; Visit Provider Social Worker
DX: F03.91 Unspecified dementia, unspecified severity, with behavioral disturbance (principal); R45.850 Homicidal ideations; Z20.822 Contact with and (suspected) exposure to COVID-19; Z79.899 Other long term (current) drug therapy
CPT/HCPCS: 36415; 70450; 80048; 80053; 80076; 80307; 81001; 83735; 84443; 85025; 87086; 87635; 93005; 99285